=== PATIENT | male | born 1960 | race Caucasian/White ===

== ENCOUNTER 2021-09-16 13:42 | Emergency (ER) | payer BC ==
[2021-09-16 13:53] VITALS: BP 136/88; PULSE 97; O2SAT 94
[2021-09-16] MEDS ORDERED: Adacel Vial IM ONE ×2 (13:53→13:57)
[2021-09-16] MEDS ORDERED: XYLOCAINE 1% HCL 20 ML MDV IJ ONE (13:53)
[2021-09-16] MEDS ORDERED: XYLOCAINE 1% HCL 20 ML MDV ONE (13:56)
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
== END 2021-09-16 14:11 | disposition home or self-care (01) ==
LOC: ED 13:42
DX: S61.240A Puncture wound with foreign body of right index finger without damage to nail, initial encounter (principal); W26.8XXA Contact with other sharp object(s), not elsewhere classified, initial encounter; W45.8XXA Other foreign body or object entering through skin, initial encounter; Y93.19 Activity, other involving water and watercraft; Y92.814 Boat as the place of occurrence of the external cause; Z28.310 Unvaccinated for COVID-19
CPT/HCPCS: 10120; 90471; 90715; 96372; 99283